=== PATIENT | female | born 1970 | race African-American/Black ===

== ENCOUNTER 2017-07-24 15:11 | Emergency (ER) | payer BC ==
[~2017-07-24 15:11] MED LIST: FERR325T PO; MEDR10 PO
[2017-07-24 15:28] VITALS: BP 144/83; PULSE 79; RESP 18; TEMP 98.4; O2SAT 100
[2017-07-24 20:14] LABS: INTERNATIONAL NORMALIZED RATIO 1.1 RATIO; PROTHROMBIN TIME - PATIENT 10.7 SEC (9.8-11.6)
[2017-07-24 20:20] LABS: HEMATOCRIT 24.5 % (35.0-46.0); HEMOGLOBIN 7.3 GM/DL (11.6-15.3); MEAN CELL VOLUME 63.8 FL (80.0-100.0); MEAN PLATELET VOLUME 8.3 FL (7.0-11.0); PLATELET COUNT 243 TH/MM3 (150-450); RED BLOOD COUNT 3.84 MIL/MM3 (4.00-5.30); RED CELL DISTRIBUTION WIDTH 31.4 % (11.6-17.2); WHITE BLOOD COUNT 3.6 TH/MM3 (4.0-11.0)
[2017-07-24 20:21] LABS: ALT (GPT) 18 U/L (10-53); AST (GOT) 22 U/L (15-37); BLOOD UREA NITROGEN 8 MG/DL (7-18); CALCIUM 8.9 MG/DL (8.5-10.1); CHLORIDE 103 MEQ/L (98-107); CREATININE 0.58 MG/DL (0.50-1.00); GLOMERULAR FILTRATION RATE 135 ML/MIN (>89); GLUCOSE,RANDOM 86 MG/DL (74-106); SODIUM (NA) 137 MEQ/L (136-145)
[2017-07-24 20:23] LABS: ALKALINE PHOSPHATASE 74 U/L (45-117); TOTAL BILIRUBIN ADULT 0.8 MG/DL (0.2-1.0); TOTAL PROTEIN 8.3 GM/DL (6.4-8.2)
[2017-07-24 20:24] LABS: MEAN CORPUSCULAR HGB CONC 29.8 % (32.0-36.0)
[2017-07-24 21:28] LABS: BASOPHILS 2 % (0-2); CORRECTED NUCLEATED RBC 1 /100 WBC (0-0); LYMPHOCYTES 39 % (9-44); MONOCYTES 7 % (0-8); NEUTROPHIL # MANUAL DIFF 1.8 TH/MM3 (1.8-7.7); NUCLEATED RED BLOOD CELL 1 (0-0); POLYS (SEG NEUTROPHILS) 51 % (16-70)
[2017-07-24 21:29] LABS: OVALOCYTES 1+ (NORMAL); TARGET CELLS 1+ (NORMAL); TEARDROP RBCS 1+ (NORMAL)
--- NOTE | 2017-07-25 01:00 | PD ---
HPI Chief Complaint: Dizziness Time Seen by Provider: 00:01 Travel History International Travel<30 days: No Contact w/Intl Traveler<30days: No Traveled to known affect area: No History of Present Illness HPI 47-year-old female complains of dizziness. It started yesterday. She is unable to work today because of it. She describes it as if she is about to pass out. No similar prior episodes. She denies any new or different medication. She reports a history of anemia however is not sure what her hemoglobin typically runs at. She denies vaginal bleeding. Last menstruation was 3 months prior. PFSH Past Medical History Anemia: Yes Blood Disorders: No Cardiovascular Problems: No Endocrine: No Genitourinary: No Musculoskeletal: No Neurologic: No Psychiatric: No Respiratory: No Tetanus Vaccination: Unknown Influenza Vaccination: No ?: Not Tubal Ligation: Yes Past Surgical History Section: Yes Social History Alcohol Use: Yes (OCC) Tobacco Use: Yes Substance Use: No Allergies-Medications (Allergen,Severity, Reaction): Coded Allergies: No Known Allergies (Verified , 08/30/13) Reported Meds & Prescriptions Reported Meds & Active Scripts Active Reported Provera 10 Mg Tab (Medroxyprogesterone Acetate) 10 Mg Tab 10 Mg PO DAILY IST PART OF EACH MONTH Iron (Ferrous Sulfate) 325 Mg Tab 325 Mg PO BID Review of Systems Except as stated in HPI: all other systems reviewed are Neg Physical Exam Narrative GENERAL: 47-year-old female pleasant well-nourished well-developed Vital Signs Date Time Temp Pulse Resp B/P (MAP) Pulse Ox O2 Delivery O2 Flow Rate FiO2 07/24/17 15:28 98.4 79 18 144/83 (103) 100 SKIN: Warm and dry. HEAD: Atraumatic. Normocephalic. EYES: Pupils equal and round. No scleral icterus. No injection or drainage. ENT: No nasal bleeding or discharge. Mucous membranes pink and moist. NECK: Trachea midline. No JVD. CARDIOVASCULAR: Regular rate and rhythm. RESPIRATORY: No accessory muscle use. Clear to auscultation. Breath sounds equal bilaterally. GASTROINTESTINAL: Abdomen soft, non-tender, nondistended. Hepatic and splenic margins not palpable. MUSCULOSKELETAL: Extremities without clubbing, cyanosis, or edema. No obvious deformities. NEUROLOGICAL: Awake and alert. No obvious cranial nerve deficits. Motor grossly within normal limits. Five out of 5 muscle strength in the arms and legs. Normal speech. PSYCHIATRIC: Appropriate mood and affect; insight and judgment normal. Data Data Last Documented VS Vital Signs Date Time Temp Pulse Resp B/P (MAP) Pulse Ox O2 Delivery O2 Flow Rate FiO2 07/24/17 15:28 98.4 79 18 144/83 (103) 100 Orders Orders Complete Blood Count With Diff (07/24/17 15:29) Comprehensive Metabolic Panel (07/24/17 15:29) Coag Profile (07/24/17 15:29) Type And Screen (07/24/17 15:29) Urinalysis - C+S If Indicated (07/24/17 15:29) Labs Laboratory Tests Test 07/24/17 19:10 07/25/17 00:50 White Blood Count 3.6 TH/MM3 Red Blood Count 3.84 MIL/MM3 Hemoglobin 7.3 GM/DL Hematocrit 24.5 % Mean Corpuscular Volume 63.8 FL Mean Corpuscular Hemoglobin 19.0 PG Mean Corpuscular Hemoglobin Concent 29.8 % Red Cell Distribution Width 31.4 % Platelet Count 243 TH/MM3 Mean Platelet Volume 8.3 FL CBC Comment AUTO DIFF Differential Total Cells Counted 100 Neutrophils % (Manual) 51 % Lymphocytes % 39 % Monocytes % 7 % Eosinophils % 1 % Basophils % 2 % Neutrophils # (Manual) 1.8 TH/MM3 Nucleated Red Blood Cells 1 /100 WBC Differential Comment FINAL DIFF MANUAL Platelet Estimate NORMAL Platelet Morphology Comment NORMAL Target Cells 1+ Tear Drop Cells 1+ Ovalocytes 1+ Prothrombin Time 10.7 SEC Prothromb Time International Ratio 1.1 RATIO Activated Partial Thromboplast Time 21.8 SEC Blood Urea Nitrogen 8 MG/DL Creatinine 0.58 MG/DL Random Glucose 86 MG/DL Total Protein 8.3 GM/DL Albumin 4.0 GM/DL Calcium Level 8.9 MG/DL Alkaline Phosphatase 74 U/L Aspartate Amino Transf (AST/SGOT) 22 U/L Alanine Aminotransferase (ALT/SGPT) 18 U/L Total Bilirubin 0.8 MG/DL Sodium Level 137 MEQ/L Potassium Level 3.7 MEQ/L Chloride Level 103 MEQ/L Carbon Dioxide Level 28.0 MEQ/L Anion Gap 6 MEQ/L Estimat Glomerular Filtration Rate 135 ML/MIN Urine Color YELLOW Urine Turbidity HAZY Urine pH 8.5 Urine Specific [place] 1.029 Urine Protein 30 mg/dL Urine Glucose (UA) NEG mg/dL Urine Ketones NEG mg/dL Urine Occult Blood NEG Urine Nitrite NEG Urine Bilirubin NEG Urine Urobilinogen GREATER THAN 12.0 MG/DL Urine Leukocyte Esterase TRACE Urine RBC 1 /hpf Urine WBC 2 /hpf Urine Squamous Epithelial Cells 5 /hpf Urine Hyaline Casts 1 /lpf Urine Mucus FEW /lpf Microscopic Urinalysis Comment CULT NOT INDICATED MDM Medical Decision Making Medical Screen Exam Complete: Yes Emergency Medical Condition: Yes Medical Record Reviewed: Yes Differential Diagnosis Anemia, electrolyte imbalance, arrhythmia Narrative Course CBC & BMP Diagram 07/24/17 19:10 Total Protein 8.3 H, Albumin 4.0, Calcium Level 8.9, Alkaline Phosphatase 74, Aspartate Amino Transf (AST/SGOT) 22, Alanine Aminotransferase (ALT/SGPT) 18, Total Bilirubin 0.8 UA: no UTI Patient has a history of anemia. At hemoglobin of 7.3 transfusion is not indicated at this time. Diagnosis Primary Impression: Anemia Qualified Codes: D64.9 - Anemia, unspecified Additional Impression: Dizziness Med/Other Pt SpecificInfo: No Change to Meds Disposition: 01 DISCHARGE HOME Condition: Stable Pawel Castillo MD Jul 25, 2017 01:00
[2017-07-25 01:21] LABS: BILIRUBIN, URINE NEG (NEG); BLOOD, URINE NEG (NEG); GLUCOSE,URINE NEG (NEG); HYALINE CAST, URINE 1 /lpf (RARE); KETONE, URINE NEG (NEG); MUCUS URINE FEW /lpf (OCC); NITRITE,URINE NEG (NEG); PH, URINE 8.5 (5.0-8.5); SQUAMOUS EPITHELIAL CELL URINE 5 /hpf (0-5); URINE COLOR YELLOW (YELLW/STRAW); URINE LEUKOCYTE ESTERASE TRACE (NEG)
--- NOTE | 2017-07-25 01:44 | PD ---
Physical Exam Date Seen by Provider: Jul 25, 2017 Time Seen by Provider: 01:41 Narrative GENERAL: This is a well-nourished, well-developed patient, in no apparent distress. SKIN: No rashes, ecchymoses or lesions. Warm and dry. HEAD: Atraumatic. Normocephalic. EYES: PERRL, EOMI, no discharge or injection. No scleral icterus. EARS: Clear NOSE: Nasal turbinates appear normal. THROAT: Mucosa pink and moist. Airway patent. NECK: Trachea midline. supple, moves head freely. LUNGS: Clear to auscultation. CV: Regular in rhythm. ABDOMEN: Soft nontender. EXT: No clubbing cyanosis or edema. Data Data Last Documented VS Vital Signs Date Time Temp Pulse Resp B/P (MAP) Pulse Ox O2 Delivery O2 Flow Rate FiO2 07/24/17 15:28 98.4 79 18 144/83 (103) 100 Orders Orders Complete Blood Count With Diff (07/24/17 15:29) Comprehensive Metabolic Panel (07/24/17 15:29) Coag Profile (07/24/17 15:29) Type And Screen (07/24/17 15:29) Urinalysis - C+S If Indicated (07/24/17 15:29) Labs Laboratory Tests Test 07/24/17 19:10 07/25/17 00:50 White Blood Count 3.6 TH/MM3 Red Blood Count 3.84 MIL/MM3 Hemoglobin 7.3 GM/DL Hematocrit 24.5 % Mean Corpuscular Volume 63.8 FL Mean Corpuscular Hemoglobin 19.0 PG Mean Corpuscular Hemoglobin Concent 29.8 % Red Cell Distribution Width 31.4 % Platelet Count 243 TH/MM3 Mean Platelet Volume 8.3 FL CBC Comment AUTO DIFF Differential Total Cells Counted 100 Neutrophils % (Manual) 51 % Lymphocytes % 39 % Monocytes % 7 % Eosinophils % 1 % Basophils % 2 % Neutrophils # (Manual) 1.8 TH/MM3 Nucleated Red Blood Cells 1 /100 WBC Differential Comment FINAL DIFF MANUAL Platelet Estimate NORMAL Platelet Morphology Comment NORMAL Target Cells 1+ Tear Drop Cells 1+ Ovalocytes 1+ Prothrombin Time 10.7 SEC Prothromb Time International Ratio 1.1 RATIO Activated Partial Thromboplast Time 21.8 SEC Blood Urea Nitrogen 8 MG/DL Creatinine 0.58 MG/DL Random Glucose 86 MG/DL Total Protein 8.3 GM/DL Albumin 4.0 GM/DL Calcium Level 8.9 MG/DL Alkaline Phosphatase 74 U/L Aspartate Amino Transf (AST/SGOT) 22 U/L Alanine Aminotransferase (ALT/SGPT) 18 U/L Total Bilirubin 0.8 MG/DL Sodium Level 137 MEQ/L Potassium Level 3.7 MEQ/L Chloride Level 103 MEQ/L Carbon Dioxide Level 28.0 MEQ/L Anion Gap 6 MEQ/L Estimat Glomerular Filtration Rate 135 ML/MIN Urine Color YELLOW Urine Turbidity HAZY Urine pH 8.5 Urine Specific [place] 1.029 Urine Protein 30 mg/dL Urine Glucose (UA) NEG mg/dL Urine Ketones NEG mg/dL Urine Occult Blood NEG Urine Nitrite NEG Urine Bilirubin NEG Urine Urobilinogen GREATER THAN 12.0 MG/DL Urine Leukocyte Esterase TRACE Urine RBC 1 /hpf Urine WBC 2 /hpf Urine Squamous Epithelial Cells 5 /hpf Urine Hyaline Casts 1 /lpf Urine Mucus FEW /lpf Microscopic Urinalysis Comment CULT NOT INDICATED MDM Medical Record Reviewed: Yes Supervised Visit with KAUSHIK: Yes Interpretation(s) Laboratory Tests Test 07/24/17 19:10 07/25/17 00:50 White Blood Count 3.6 TH/MM3 Red Blood Count 3.84 MIL/MM3 Hemoglobin 7.3 GM/DL Hematocrit 24.5 % Mean Corpuscular Volume 63.8 FL Mean Corpuscular Hemoglobin 19.0 PG Mean Corpuscular Hemoglobin Concent 29.8 % Red Cell Distribution Width 31.4 % Platelet Count 243 TH/MM3 Mean Platelet Volume 8.3 FL CBC Comment AUTO DIFF Differential Total Cells Counted 100 Neutrophils % (Manual) 51 % Lymphocytes % 39 % Monocytes % 7 % Eosinophils % 1 % Basophils % 2 % Neutrophils # (Manual) 1.8 TH/MM3 Nucleated Red Blood Cells 1 /100 WBC Differential Comment FINAL DIFF MANUAL Platelet Estimate NORMAL Platelet Morphology Comment NORMAL Target Cells 1+ Tear Drop Cells 1+ Ovalocytes 1+ Prothrombin Time 10.7 SEC Prothromb Time International Ratio 1.1 RATIO Activated Partial Thromboplast Time 21.8 SEC Blood Urea Nitrogen 8 MG/DL Creatinine 0.58 MG/DL Random Glucose 86 MG/DL Total Protein 8.3 GM/DL Albumin 4.0 GM/DL Calcium Level 8.9 MG/DL Alkaline Phosphatase 74 U/L Aspartate Amino Transf (AST/SGOT) 22 U/L Alanine Aminotransferase (ALT/SGPT) 18 U/L Total Bilirubin 0.8 MG/DL Sodium Level 137 MEQ/L Potassium Level 3.7 MEQ/L Chloride Level 103 MEQ/L Carbon Dioxide Level 28.0 MEQ/L Anion Gap 6 MEQ/L Estimat Glomerular Filtration Rate 135 ML/MIN Urine Color YELLOW Urine Turbidity HAZY Urine pH 8.5 Urine Specific [place] 1.029 Urine Protein 30 mg/dL Urine Glucose (UA) NEG mg/dL Urine Ketones NEG mg/dL Urine Occult Blood NEG Urine Nitrite NEG Urine Bilirubin NEG Urine Urobilinogen GREATER THAN 12.0 MG/DL Urine Leukocyte Esterase TRACE Urine RBC 1 /hpf Urine WBC 2 /hpf Urine Squamous Epithelial Cells 5 /hpf Urine Hyaline Casts 1 /lpf Urine Mucus FEW /lpf Microscopic Urinalysis Comment CULT NOT INDICATED Differential Diagnosis . Narrative Course I reviewed the patient's laboratory test. She has been anemic for some time now. Her hemoglobin is 7.3. I do not believe she needs a transfusion. Is also noted that she has urobilinogen in her urine. She has had urobilinogen in the urine for many years as well but is becoming much higher. She denies any history of a hemolytic anemia. The patient's been advised to follow-up for further blood testing and evaluation. Patient verbalizes understanding and agrees with treatment plan and follow-up. She is referred to the [facility]. This is dizziness, anemia, elevated urobilinogen Diagnosis Primary Impression: Anemia Qualified Codes: D64.9 - Anemia, unspecified Additional Impressions: Dizziness Elevated urobilinogen rule out hemolytic anemia Referrals: Margarito De Luna MD 1 week [facility] 2 days Patient Instructions: General Instructions Additional Instruction: Rest. Increase fluids. [id number] iron supplement. Follow-up with the [facility] in 2 days. Return to the ER for any problems. Med/Other Pt SpecificInfo: No Meds Exist/No RX given Disposition: DISCHARGE HOME Condition: Stable Jose Maria Ralph Jul 25, 2017 01:44
== END 2017-07-25 02:11 | disposition home or self-care (01) ==
LOC: NEPD 15:11
DX: R42 Dizziness and giddiness (principal); D64.9 Anemia, unspecified; R82.99 Other abnormal findings in urine; Z72.0 Tobacco use
CPT/HCPCS: 80053; 81001; 85007; 85027; 85610; 85730; 86850; 86900; 86901; 99283